=== PATIENT | male | born 1985 | race Hispanic/Latino ===

== ENCOUNTER 2017-09-09 19:00 | Emergency (ER) | payer SELFPAY | END 2017-09-09 19:35 | disposition home or self-care (01) | LOC: EDH 19:00 | DX: K64.9 Unspecified hemorrhoids (principal); Z88.0 Allergy status to penicillin | CPT/HCPCS: 99281 ==

== ENCOUNTER → 2020-02-18 | Outpatient (CLI) | payer OTHER | END | disposition home or self-care (01) | LOC: OIH 14:12 | PROVIDERS: ATTEND Internal Medicine | DX: M47.816 Spondylosis without myelopathy or radiculopathy, lumbar region (principal); M48.061 Spinal stenosis, lumbar region without neurogenic claudication; M25.78 Osteophyte, vertebrae | CPT/HCPCS: 72100 ==

== ENCOUNTER 2020-08-24 15:29 | Inpatient (IN) | payer MEDICAID, OTHER ==
[~2020-08-24] VITALS: Ht 185.4 cm; Wt 211.4 kg
[2020-08-24 16:04] LABS: ABG HCO3 40.1 mmol/L (21.0-28.0); ABG OXYGEN SATURATION 83.2 % (95.0-99.0); ABG PCO2 61 mmHg (35-48)
[2020-08-24 16:08] LABS: BASOPHILS % (AUTO) 0.2 % (0.0-5.0); EOSINOPHILS % (AUTO) 0.2 % (0.0-8.0); HEMATOCRIT 41.4 % (42-54); LYMPHOCYTES % (AUTO) 13.5 % (21.0-51.0); MEAN CORPUSCULAR HEMOGLOBIN 22.9 pg (27.0-33.0); MEAN CORPUSCULAR HGB CONC 29.7 g/dL (32.0-36.0); MEAN CORPUSCULAR VOLUME 77.1 fL (79-99); MONOCYTES % (AUTO) 8.4 % (3.0-13.0); NEUTROPHILS % (AUTO) 77.3 % (40.0-77.0); PLATELET COUNT (AUTO) 406 K/uL (130-400); RED BLOOD CELL COUNT(AUTO) 5.37 MIL/uL (4.50-6.20); RED CELL DISTRIBUTION WIDTH 20.8 % (11.0-15.5); WHITE BLOOD COUNT (AUTO) 13.1 K/uL (4.8-10.8)
[2020-08-24 16:26] LABS: INR 1.05 (0.85-1.15); PROTHROMBIN TIME 11.4 SEC (9.6-11.6)
[2020-08-24 16:28] LABS: ALBUMIN 3.1 g/dL (3.5-5.0); BILIRUBIN,TOTAL 0.6 mg/dL (0.2-1.0)
[2020-08-24] MEDS ORDERED: LEVOFLOXACIN 500 MG/D5W 100 ML 100 ML ONE (16:45)
[2020-08-24 17:08] LABS: CRP QUANTITATIVE 2.8 mg/L (0.00-9.0)
[2020-08-24] MEDS ORDERED: VANCOMYCIN PROTOCOL PER PHARMACY IV SCH (18:00)
[2020-08-24] MEDS ORDERED: LABETALOL 20MG SYG IV PRN (18:00)
[2020-08-24] MEDS ORDERED: COMPOUND IV REFRIGERATED 1 EACH IVSOLN MISC PRN (18:15)
[2020-08-24] MEDS ORDERED: VANCOMYCIN 1G 2.5 GM in 0.9% NACL 500ML IV.SOLN 500 ML IV ONE (18:15)
[2020-08-24 18:21] LABS: % IRON SATURATION 12.8 % (30-44)
[2020-08-24 18:30] LABS: THYROID STIMULATING HORMONE 1.68 uIU/mL (0.36-3.74)
[2020-08-24 18:41] LABS: HEMOGLOBIN A1C 6.6 % (4.0-6.0)
[2020-08-24] MEDS ORDERED: METF-444 PO (19:38)
[2020-08-24] MEDS ORDERED: FOLIC ACID 1 MG TABLET PO SCH (19:55)
[2020-08-24 19:59] VITALS: BP 156/90
[2020-08-24] MEDS ORDERED: DEXAMETHASONE SOD PHOSPHATE 4 MG/ML 1ML VIAL IVP SCH (20:00)
[2020-08-24] MEDS: INSULIN HUMULIN R 100 UNIT/ML 3ML SQ SCH (20:31)
[2020-08-24] MEDS ORDERED: HYDROXYZINE 25 MG TABLET PO SCH (22:45)
[2020-08-24] MEDS ORDERED: HYDROXYZINE 25 MG TABLET ONE (22:51)
[2020-08-25 00:24] VITALS: BP 145/86
[2020-08-25] MEDS: VANCOMYCIN 1G/250ML KIT 250 ML IV SCH ×2 (02:03→09:42)
[2020-08-25 03:57] VITALS: BP 140/90
[2020-08-25 05:42] LABS: BASOPHILS % (AUTO) 0.3 % (0.0-5.0); EOSINOPHILS % (AUTO) 0.6 % (0.0-8.0); HEMATOCRIT 40.7 % (42-54); LYMPHOCYTES % (AUTO) 14.6 % (21.0-51.0); MEAN CORPUSCULAR HEMOGLOBIN 22.6 pg (27.0-33.0); MEAN CORPUSCULAR VOLUME 75.5 fL (79-99); MONOCYTES % (AUTO) 6.1 % (3.0-13.0); PLATELET COUNT (AUTO) 317 K/uL (130-400); RED BLOOD CELL COUNT(AUTO) 5.39 MIL/uL (4.50-6.20); RED CELL DISTRIBUTION WIDTH 20.3 % (11.0-15.5); WHITE BLOOD COUNT (AUTO) 10.1 K/uL (4.8-10.8)
[2020-08-25] MEDS: INSULIN HUMULIN R 100 UNIT/ML 3ML SQ SCH ×3 (05:57→16:24)
[2020-08-25 06:04] LABS: ALBUMIN 2.9 g/dL (3.5-5.0); BILIRUBIN,TOTAL 0.6 mg/dL (0.2-1.0); CREATININE 0.9 mg/dL (0.5-1.5); CRP QUANTITATIVE 17.2 mg/L (0.00-9.0); POTASSIUM 3.6 mmol/L (3.5-5.1); TOTAL PROTEIN, SERUM 6.9 g/dL (6.0-8.3)
[2020-08-25 08:00] VITALS: BP 126/72
[2020-08-25] MEDS ORDERED: THIAMINE HCL 100 MG TABLET PO SCH (09:00)
[2020-08-25] MEDS ORDERED: LEVOFLOXACIN 750 MG/D5W 150 ML 150 ML IV SCH (09:00)
[2020-08-25] MEDS ORDERED: ENOXAPARIN SODIUM 40 MG/0.4 ML SYRINGE SQ SCH (09:00)
[2020-08-25 09:10] LABS: AMPHET/METH SCREEN,URINE NEGATIVE (NEGATIVE); BARBITURATE SCREEN, URINE NEGATIVE (NEGATIVE); BENZODIAZEPINES SCREEN,URINE NEGATIVE (NEGATIVE); CANNABINOID SCREEN,URINE NEGATIVE (NEGATIVE); COCAINE SCREEN,URINE NEGATIVE (NEGATIVE); OPIATE SCREEN,URINE NEGATIVE (NEGATIVE); PHENCYCLIDINE SCREEN,URINE NEGATIVE (NEGATIVE)
[2020-08-25] MEDS ORDERED: NICOTINE 14 MG/ 24 HR PATCH TD SCH (11:30)
[2020-08-25 11:41] VITALS: BP 133/66
[2020-08-25 16:43] VITALS: BP 129/71
[2020-08-25] MEDS ORDERED: COMPOUND IV REFRIGERATED 1 EACH IVSOLN MISC PRN (17:30)
[2020-08-25] MEDS ORDERED: VANCOMYCIN 1G 2 GM in 0.9% NACL 500ML IV.SOLN 500 ML IV SCH (18:00)
[2020-08-26] MEDS ORDERED: NICOTINE 14 MG/ 24 HR PATCH TD SCH (09:00)
== END 2020-08-25 19:45 | disposition left against medical advice (07) | DRG 139 ==
LOC: EDH 15:29 → EDHIP 15:30 → 2AH 19:27
PROVIDERS: ADMIT Internal Medicine; ATTEND Internal Medicine
DX: J18.9 Pneumonia, unspecified organism (principal); J96.01 Acute respiratory failure with hypoxia; J96.12 Chronic respiratory failure with hypercapnia; E66.01 Morbid (severe) obesity due to excess calories; E11.9 Type 2 diabetes mellitus without complications; I10 Essential (primary) hypertension; F17.210 Nicotine dependence, cigarettes, uncomplicated; Z20.822 Contact with and (suspected) exposure to COVID-19; G47.33 Obstructive sleep apnea (adult) (pediatric); Z68.44 Body mass index [BMI] 60.0-69.9, adult; Z88.0 Allergy status to penicillin; Z91.19 Patient's noncompliance with other medical treatment and regimen; Z83.3 Family history of diabetes mellitus
CPT/HCPCS: 36415; 36600; 71045; 71250; 80053; 80061; 80202; 80305; 82728; 82803; 82948; 83036; 83540; 83550; 83605; 83615; 83880; 84145; 84443; 84484; 85025; 85378; 85610; 85651; 85730; 86140; 86738; 86850; 86900; 86901; 87040; 87426; 87449; 93005; 93970; 94660; G0378; J1650; J1956; J3370; J7040; U0003

== ENCOUNTER 2021-12-21 20:53 | Emergency (ER) | payer MEDICAID ==
[~2021-12-21] VITALS: Ht 185.4 cm; Wt 208.7 kg
[~2021-12-21 20:53] MED LIST: METF-444 PO
[2021-12-21 20:55] VITALS: BP 154/90
[2021-12-21 21:17] LABS: BASOPHILS % (AUTO) 0.2 % (0.0-5.0); HEMATOCRIT 50.9 % (42-54); LYMPHOCYTES % (AUTO) 19.8 % (21.0-51.0); MEAN CORPUSCULAR HGB CONC 30.6 g/dL (32.0-36.0); MEAN CORPUSCULAR VOLUME 84.8 fL (79-99); MONOCYTES % (AUTO) 8.6 % (3.0-13.0); PLATELET COUNT (AUTO) 268 K/uL (130-400); RED CELL DISTRIBUTION WIDTH 18.9 % (11.0-15.5); WHITE BLOOD COUNT (AUTO) 9.2 K/uL (4.8-10.8)
[2021-12-21 21:30] LABS: CREATININE 0.9 mg/dL (0.5-1.5); POTASSIUM 4.2 mmol/L (3.5-5.1)
[2021-12-21 21:38] LABS: ALBUMIN 3.3 g/dL (3.5-5.0); BILIRUBIN,TOTAL 0.2 mg/dL (0.2-1.0); TOTAL PROTEIN, SERUM 7.8 g/dL (6.0-8.3)
[2021-12-21 21:50] LABS: ABG BASE EXCESS 2.1 mmol/L (-2.0-3.0); ABG HCO3 27.7 mmol/L (21.0-28.0); ABG OXYGEN SATURATION 96.3 % (95.0-99.0); ABG PCO2 46 mmHg (35-48)
[2021-12-21] MEDS ORDERED: DEXA6TAB PO (22:43)
[2021-12-21] MEDS ORDERED: DEXAMETHASONE SOD PHOSPHATE 4 MG/ML 1ML VIAL IVP ONE (23:00)
== END 2021-12-21 22:47 | disposition home or self-care (01) ==
LOC: EDH 20:53
DX: U07.1 COVID-19 (principal); F41.9 Anxiety disorder, unspecified; F32.A Depression, unspecified; E11.9 Type 2 diabetes mellitus without complications; E78.00 Pure hypercholesterolemia, unspecified; I10 Essential (primary) hypertension; Z88.0 Allergy status to penicillin; Z88.1 Allergy status to other antibiotic agents; Z79.84 Long term (current) use of oral hypoglycemic drugs
CPT/HCPCS: 36415; 36600; 71045; 80053; 82803; 83615; 84484; 85025; 85378; 93005; 96374; 99285; J1100

== ENCOUNTER → 2022-05-24 | Outpatient (CLI) | payer OTHER ==
[~2022-05-24] MED LIST changes: +DEXA6TAB PO
== END | disposition home or self-care (01) ==
LOC: DTH 12:11
PROVIDERS: ATTEND Surgery
DX: Z71.3 Dietary counseling and surveillance (principal); E66.01 Morbid (severe) obesity due to excess calories; E11.9 Type 2 diabetes mellitus without complications; E78.00 Pure hypercholesterolemia, unspecified; G47.33 Obstructive sleep apnea (adult) (pediatric); K21.9 Gastro-esophageal reflux disease without esophagitis; Z68.44 Body mass index [BMI] 60.0-69.9, adult
CPT/HCPCS: 97802

== ENCOUNTER → 2022-06-21 | Outpatient (CLI) | payer OTHER | END | disposition home or self-care (01) | LOC: DTH 10:28 | PROVIDERS: ATTEND Surgery | DX: Z71.3 Dietary counseling and surveillance (principal); E66.01 Morbid (severe) obesity due to excess calories; E78.00 Pure hypercholesterolemia, unspecified; E11.9 Type 2 diabetes mellitus without complications; K21.9 Gastro-esophageal reflux disease without esophagitis; G47.33 Obstructive sleep apnea (adult) (pediatric); Z68.44 Body mass index [BMI] 60.0-69.9, adult | CPT/HCPCS: 97803 ==

== ENCOUNTER → 2022-08-10 | Outpatient (CLI) | payer OTHER | END | disposition home or self-care (01) | LOC: DTH 09:03 | PROVIDERS: ATTEND Surgery | DX: Z71.3 Dietary counseling and surveillance (principal); E66.01 Morbid (severe) obesity due to excess calories; E11.9 Type 2 diabetes mellitus without complications; E78.00 Pure hypercholesterolemia, unspecified; K21.9 Gastro-esophageal reflux disease without esophagitis; G47.33 Obstructive sleep apnea (adult) (pediatric); Z68.44 Body mass index [BMI] 60.0-69.9, adult | CPT/HCPCS: 97803 ==

== ENCOUNTER → 2022-09-05 | Outpatient (CLI) | payer MEDICAID, OTHER | END | disposition home or self-care (01) | LOC: DTH 11:19 | PROVIDERS: ATTEND Surgery | DX: Z71.3 Dietary counseling and surveillance (principal); E66.01 Morbid (severe) obesity due to excess calories; E11.9 Type 2 diabetes mellitus without complications; K21.9 Gastro-esophageal reflux disease without esophagitis; G47.33 Obstructive sleep apnea (adult) (pediatric); Z68.44 Body mass index [BMI] 60.0-69.9, adult | CPT/HCPCS: 97803 ==

== ENCOUNTER → 2022-10-13 | Outpatient (CLI) | payer OTHER | END | disposition home or self-care (01) | LOC: DTH 10:26 | PROVIDERS: ATTEND Surgery | DX: Z71.3 Dietary counseling and surveillance (principal); E66.01 Morbid (severe) obesity due to excess calories; E11.9 Type 2 diabetes mellitus without complications; E78.00 Pure hypercholesterolemia, unspecified; K21.9 Gastro-esophageal reflux disease without esophagitis; G47.33 Obstructive sleep apnea (adult) (pediatric); Z68.44 Body mass index [BMI] 60.0-69.9, adult | CPT/HCPCS: 97803 ==

== ENCOUNTER 2022-11-28 09:37 | Inpatient (IN) | payer MEDICAID ==
[2022-11-24 11:54] VITALS: BP 147/77
[2022-11-24 12:02] LABS: CREATININE 0.9 mg/dL (0.5-1.5); POTASSIUM 3.8 mmol/L (3.5-5.1)
[2022-11-24 12:16] LABS: BASOPHILS % (AUTO) 0.4 % (0.0-5.0); EOSINOPHILS % (AUTO) 2.3 % (0.0-8.0); HEMATOCRIT 52.1 % (42-54); LYMPHOCYTES % (AUTO) 23.6 % (21.0-51.0); MEAN CORPUSCULAR HEMOGLOBIN 24.8 pg (27.0-33.0); MEAN CORPUSCULAR HGB CONC 30.7 g/dL (32.0-36.0); MEAN CORPUSCULAR VOLUME 80.8 fL (79-99); MONOCYTES % (AUTO) 7.6 % (3.0-13.0); NEUTROPHILS % (AUTO) 65.8 % (40.0-77.0); PLATELET COUNT (AUTO) 284 K/uL (130-400); RED BLOOD CELL COUNT(AUTO) 6.45 MIL/uL (4.50-6.20); RED CELL DISTRIBUTION WIDTH 20.3 % (11.0-15.5); WHITE BLOOD COUNT (AUTO) 7.7 K/uL (4.8-10.8)
[2022-11-28] VITALS (25 sets, daily range): BP systolic 93–175; BP diastolic 40–111
[~2022-11-28] VITALS: Ht 185.4 cm; Wt 205.6 kg
[~2022-11-28 09:37] MED LIST changes: +AMIT50TA3 PO; +ATOR-2 PO; -DEXA6TAB PO; -METF-444 PO; +SEMA2PEN SQ; +TOPI100T37 PO; +VALB40CA2 PO; +VITAD50000 PO; +VORT10TA PO
[2022-11-28] MEDS ORDERED: CLINDAMYCIN IVPB 900MG/50ML 50 ML IV ONE (09:56)
[2022-11-28] MEDS ORDERED: 0.9%NACL 1000ML 1,000 ML IV ONE (09:56)
[2022-11-28] MEDS ORDERED: IPRATROPIUM/ALBUTEROL SULFATE 3 ML SOLUTION IH STA (10:28)
[2022-11-28] MEDS ORDERED: LIDOCAINE HCL MPF 1% 5ML VIAL ONE (10:44)
[2022-11-28] MEDS ORDERED: ROCURONIUM 10MG/1ML SYR 10 MG/ML ML ONE ×2 (10:44→12:08)
[2022-11-28] MEDS ORDERED: FENTANYL CITRATE PF 50 MCG/1 ML 2ML VIAL ONE (10:44)
[2022-11-28] MEDS ORDERED: SUCCINYLCHOLINE 200MG/10ML SYR ONE (10:44)
[2022-11-28] MEDS ORDERED: PROPOFOL 10 MG/ML 20ML VIAL IV ONE ×2 (10:44→10:45)
[2022-11-28] MEDS ORDERED: SUGAMMADEX SODIUM 200 MG/2 ML VIAL IV ONE (11:02)
[2022-11-28] MEDS ORDERED: FAMOTIDINE 20MG VIAL IV ONE ×2 (11:03→11:04)
[2022-11-28] MEDS ORDERED: LIDOCAINE 1%-EPI 1:100,000 20 ML VIAL IJ ONE ×2 (11:08→11:37)
[2022-11-28] MEDS ORDERED: BUPIVACAINE/PF 0.25% 30ML VIAL IJ ONE ×2 (11:08→11:38)
[2022-11-28] MEDS ORDERED: EPHEDRINE SULFATE 50 MG/ML AMPULE ONE (11:37)
[2022-11-28] MEDS ORDERED: PHENYLEPHRINE HCL 10 MG/ML 1ML VIAL IV ONE (12:09)
[2022-11-28] MEDS ORDERED: DEXAMETHASONE SOD PHOSPHATE 10MG/ML 1ML VIAL ONE (12:11)
[2022-11-28] MEDS ORDERED: ONDANSETRON 4MG INJ ONE (12:12)
[2022-11-28] MEDS ORDERED: FENTANYL CITRATE PF 50 MCG/1 ML 5ML AMP IV ONE (15:49)
[2022-11-28] MEDS ORDERED: ONDANSETRON 4MG INJ IVP PRN (16:00)
[2022-11-28] MEDS ORDERED: MORPHINE 5 MG/ML VIAL (5MG OR GREATER DOSE) IVP PRN (16:00)
[2022-11-28] MEDS: CLINDAMYCIN IVPB 900MG/50ML 50 ML IV SCH (16:00)
[2022-11-28] MEDS ORDERED: LACTATED RINGERS 1000ML 1,000 ML IV SCH (16:00)
[2022-11-28] MEDS ORDERED: MEPERIDINE-PF 25 MG/ML SYG ONE (16:22)
[2022-11-28] MEDS: INSULIN HUMULIN R 100 UNIT/ML 3ML SQ SCH ×2 (16:30→21:00)
[2022-11-28] MEDS: KETOROLAC 30MG VIAL (30MG/ML) IVP PRN (18:03)
[2022-11-28] MEDS: ENOXAPARIN SODIUM 30 MG/0.3 ML SQ SCH (21:45)
[2022-11-28] MEDS: FAMOTIDINE 20MG VIAL IV SCH (21:45)
[2022-11-29] MEDS: CLINDAMYCIN IVPB 900MG/50ML 50 ML IV SCH
[2022-11-29 03:59] VITALS: BP 110/99
[2022-11-29] MEDS: KETOROLAC 30MG VIAL (30MG/ML) IVP PRN ×2 (04:44→12:39)
[2022-11-29 04:47] LABS: BASOPHILS % (AUTO) 0.1 % (0.0-5.0); HEMATOCRIT 43.1 % (42-54); LYMPHOCYTES % (AUTO) 7.9 % (21.0-51.0); MEAN CORPUSCULAR HEMOGLOBIN 25.2 pg (27.0-33.0); MEAN CORPUSCULAR HGB CONC 30.6 g/dL (32.0-36.0); MEAN CORPUSCULAR VOLUME 82.4 fL (79-99); NEUTROPHILS % (AUTO) 82.7 % (40.0-77.0); PLATELET COUNT (AUTO) 278 K/uL (130-400); RED BLOOD CELL COUNT(AUTO) 5.23 MIL/uL (4.50-6.20); WHITE BLOOD COUNT (AUTO) 12.2 K/uL (4.8-10.8)
[2022-11-29 04:56] LABS: CREATININE 1.1 mg/dL (0.5-1.5); POTASSIUM 4.2 mmol/L (3.5-5.1)
[2022-11-29] MEDS: INSULIN HUMULIN R 100 UNIT/ML 3ML SQ SCH ×2 (05:56→11:30)
[2022-11-29 08:00] VITALS: BP 118/53
[2022-11-29] MEDS: FAMOTIDINE 20MG VIAL IV SCH (09:43)
[2022-11-29] MEDS: ENOXAPARIN SODIUM 30 MG/0.3 ML SQ SCH (09:44)
[2022-11-29 12:00] VITALS: BP 156/69
[2022-11-29] MEDS ORDERED: TOPIRAMATE 100 MG TAB PO SCH (21:00)
[2022-11-29] MEDS ORDERED: AMITRIPTYLINE HCL 50 MG PO SCH (21:00)
== END 2022-11-29 17:45 | disposition home or self-care (01) | DRG 403 ==
LOC: DAHIP 09:37 → 4AH 17:10
PROVIDERS: ADMIT Surgery; ATTEND Surgery
PROC: 0D164ZA Bypass Stomach to Jejunum, Percutaneous Endoscopic Approach (ICD-10-PCS; 2022-11-28)
PROC: 8E0W4CZ Robotic Assisted Procedure of Trunk Region, Percutaneous Endoscopic Approach (ICD-10-PCS; principal; 2022-11-28 11:16)
DX: E66.01 Morbid (severe) obesity due to excess calories (principal); E11.9 Type 2 diabetes mellitus without complications; G47.33 Obstructive sleep apnea (adult) (pediatric); Z20.822 Contact with and (suspected) exposure to COVID-19; Z68.43 Body mass index [BMI] 50.0-59.9, adult; K29.70 Gastritis, unspecified, without bleeding
CPT/HCPCS: 36415; 71045; 80048; 82948; 85025; 87426; 93970; 94640; G0378; J0330; J1100; J1650; J1885; J2175; J2370; J2405; J2704; J3010; J3490; J7030

== ENCOUNTER 2023-05-22 13:46 | Emergency (ER) | payer MEDICAID ==
[~2023-05-22] VITALS: Ht 185.4 cm; Wt 167.8 kg
[2023-05-22 16:32] LABS: BASOPHILS # (AUTO) 0.02 K/uL (0.00-0.20); BASOPHILS % (AUTO) 0.3 % (0.0-5.0); EOSINOPHILS # (AUTO) 0.16 K/uL (0.00-0.70); EOSINOPHILS % (AUTO) 2.2 % (0.0-8.0); HEMATOCRIT 44.8 % (42-54); IMMATURE GRANULOCYTE ABSOLUTE 0.02 K/uL (0-1); MEAN CORPUSCULAR HEMOGLOBIN 26.4 pg (27.0-33.0); MEAN CORPUSCULAR HGB CONC 31.3 g/dL (32.0-36.0); MEAN CORPUSCULAR VOLUME 84.5 fL (79-99); MONOCYTES # (AUTO) 0.5 K/uL (0.1-1.0); MONOCYTES % (AUTO) 7.4 % (3.0-13.0); NEUTROPHILS # (AUTO) 4.5 K/uL (1.8-7.7); NEUTROPHILS % (AUTO) 61.8 % (40.0-77.0); PLATELET COUNT (AUTO) 286 K/uL (130-400); RED CELL DISTRIBUTION WIDTH 17.7 % (11.0-15.5); WHITE BLOOD COUNT (AUTO) 7.2 K/uL (4.8-10.8)
[2023-05-22 16:40] LABS: POTASSIUM 3.6 mmol/L (3.5-5.1)
[2023-05-22 16:44] LABS: ALBUMIN 3.5 g/dL (3.5-5.0); BILIRUBIN,TOTAL 0.4 mg/dL (0.2-1.0); TOTAL PROTEIN, SERUM 7.9 g/dL (6.0-8.3)
[2023-05-22] MEDS ORDERED: LACTATED RINGERS 1000ML 1,000 ML IV ONE (18:00)
[2023-05-22] MEDS ORDERED: ONDANSETRON 4MG INJ IVP ONE (18:00)
[2023-05-22] MEDS ORDERED: MORPHINE 4 MG SYG IVP ONE (18:00)
[2023-05-22 19:10] VITALS: BP 141/78; PULSE 73; RESP 16; O2SAT 95
[2023-05-22 19:20] LABS: APPEARANCE,URINE CLEAR (CLEAR); BILIRUBIN,URINE NEGATIVE (NEGATIVE); COLOR,URINE YELLOW (YELLOW); GLUCOSE, URINE (UA) NEGATIVE (NEGATIVE); KETONES,URINE NEGATIVE (NEGATIVE); LEUKOCYTE ESTERASE ,URINE NEGATIVE Leu/uL (NEGATIVE); NITRATE,URINE NEGATIVE (NEGATIVE); OCCULT BLOOD,URINE NEGATIVE (NEGATIVE); PROTEIN,URINE 20 mg/dL (NEGATIVE); UROBILINOGEN,URINE 3 mg/dL (0.2-1.0)
[2023-05-22 19:21] LABS: ADD UA MICROSCOPIC YES
[2023-05-22 19:24] LABS: BACTERIA,URINE RARE /HPF (None Seen); MUCUS,URINE MOD LPF (None Seen); RBC,URINE 0-1 /HPF (0-1); SQUAMOUS EPITHELIAL CELL,UR RARE /HPF (0-2)
[2023-05-22] MEDS ORDERED: IOHEXOL-350 75 ML VIAL IV ONE (19:37)
[2023-05-22] MEDS ORDERED: ACET-2247 PO (21:47)
== END 2023-05-22 22:18 | disposition home or self-care (01) ==
LOC: EDH 13:46
DX: R10.9 Unspecified abdominal pain (principal); E11.9 Type 2 diabetes mellitus without complications; E78.00 Pure hypercholesterolemia, unspecified; F31.9 Bipolar disorder, unspecified; I10 Essential (primary) hypertension; J44.9 Chronic obstructive pulmonary disease, unspecified; Z88.0 Allergy status to penicillin; Z88.1 Allergy status to other antibiotic agents
CPT/HCPCS: 99285; 74177; 96374; 71045; 96375; 84484; 80053; 83690; 85025; 81001; 36415; 93005; J7120; J2405; J2270; Q9967

== ENCOUNTER 2024-09-02 06:50 | Observation (INO) | payer MEDICAID ==
[2024-08-29 08:56] VITALS: BP 135/75; PULSE 61; RESP 20; TEMP 97.3
[2024-08-29 09:13] LABS: BASOPHILS # (AUTO) 0.02 K/uL (0.00-0.20); BASOPHILS % (AUTO) 0.3 % (0.0-5.0); EOSINOPHILS # (AUTO) 0.11 K/uL (0.00-0.70); EOSINOPHILS % (AUTO) 1.8 % (0.0-8.0); HEMATOCRIT 45.1 % (42-54); IMMATURE GRANULOCYTE ABSOLUTE 0.02 K/uL (0-1); LYMPHOCYTES # (AUTO) 2.1 K/uL (1.0-4.8); LYMPHOCYTES % (AUTO) 34.2 % (21.0-51.0); MEAN CORPUSCULAR HEMOGLOBIN 29.1 pg (27.0-33.0); MEAN CORPUSCULAR HGB CONC 32.2 g/dL (32.0-36.0); MEAN CORPUSCULAR VOLUME 90.6 fL (79-99); MONOCYTES # (AUTO) 0.5 K/uL (0.1-1.0); MONOCYTES % (AUTO) 8.2 % (3.0-13.0); NEUTROPHILS # (AUTO) 3.4 K/uL (1.8-7.7); NEUTROPHILS % (AUTO) 55.2 % (40.0-77.0); PLATELET COUNT (AUTO) 243 K/uL (130-400); RED BLOOD CELL COUNT(AUTO) 4.98 MIL/uL (4.50-6.20); RED CELL DISTRIBUTION WIDTH 13.9 % (11.0-15.5); WHITE BLOOD COUNT (AUTO) 6.1 K/uL (4.8-10.8)
[2024-08-29 09:26] LABS: INR 0.96 (0.85-1.15); PROTHROMBIN TIME 10.2 SEC (9.6-11.6)
[2024-08-29 09:28] LABS: PARTIAL THROMBOPLASTIN TIME 28.8 SEC (26.3-35.5)
[2024-09-02] VITALS (28 sets, daily range): BP systolic 90–114; BP diastolic 36–78; PULSE 51–66; RESP 15–20; TEMP 97.3–97.9
[~2024-09-02] VITALS: Ht 185.4 cm; Wt 131.4 kg
[~2024-09-02 06:50] MED LIST changes: -ATOR-2 PO; +ERGO500093 PO; +LAMO25TA72 PO; +TOPI-97 PO; -TOPI100T37 PO; +TRINTELLIX PO; -VITAD50000 PO; -VORT10TA PO
[2024-09-02] MEDS: acetaMINOPHEN 100 ML ONE (07:08)
[2024-09-02] MEDS: FAMOTIDINE 20MG VIAL IV ONE (07:08)
[2024-09-02] MEDS ORDERED: LIDOCAINE PF 100MG/5ML (2%) SYRINGE 5ML ONE (07:37)
[2024-09-02] MEDS ORDERED: rocuRONium bROMide 10MG/1ML 5ML VL ONE ×2 (07:37→08:59)
[2024-09-02] MEDS ORDERED: FENTanyl CITRate PF 50 MCG/1 ML 2ML VIAL ONE (07:37)
[2024-09-02] MEDS ORDERED: proPOFol 10 MG/ML 20ML VIAL IV ONE (07:37)
[2024-09-02] MEDS: 0.9%NACL 1000ML 1,000 ML IV ONE (07:39)
[2024-09-02] MEDS: CLINDAMYCIN IVPB 900MG/50ML 50 ML IV ONE (07:39)
[2024-09-02] MEDS ORDERED: ALBUMIN (HUMAN) 5% 250 ML IV ONE (07:40)
[2024-09-02] MEDS ORDERED: ketaMINE 50MG/ML SYRINGE 50 MG/ML DISP.SYRIN ONE (07:40)
[2024-09-02] MEDS: CLINDAMYCIN 900MG/6ML INJ IVPB ONE (08:45)
[2024-09-02] MEDS ORDERED: dexaMETHasone SOD PHOSPHATE 10MG/ML 1ML VIAL ONE (08:45)
[2024-09-02] MEDS ORDERED: ondanSETRON 4MG INJ ONE (08:45)
[2024-09-02] MEDS ORDERED: phenylEPHRINE HCL 10 MG/ML 1ML VIAL IV ONE (09:09)
--- NOTE | 2024-09-02 10:58 | OP ---
Operative Note: DATE OF PROCEDURE: 09/02/24 SURGEON: LEWIS STEPHENS MD ICING MACHINE OPERATOR: [] ANESTHESIA: [] General ANESTHESIOLOGIST/CHECK CLERK: [] PREOPERATIVE DIAGNOSIS: [] Panniculitis POSTOPERATIVE DIAGNOSIS: [] The same SYNOPSIS: [] PROCEDURE: [] Panniculectomy ESTIMATED BLOOD LOSS: [] 300 cc INDICATIONS: [] DESCRIPTION OF PROCEDURE: [] With the patient prepped and draped previously marked I did an incision from right to left side of anterior iliac spine. I started creating flaps using cautery and voyent device. Patient had a very thick abdominal wall. I was able to create all this flap to the ribs in the umbilicus was removed as discussed with the patient previously. After elevating the flaps I placed the patient in a reflex position and I removed the excess of skin and subcutaneous tissue. Bleeding points were cauterized and perforated sometimes were suture. After removing the skin and subcutaneous tissue I then started approximated the flaps in three layers with a 2-0 Monocryl. The 1st one in the deep subcutaneous tissue the 2nd one in the superficial dermal in the last one and 4-0 Monocryl. I placed two CARMEN 10. That were brought to the side of the wound and were anchored with nylon. After this was done I placed a Steri-Strips and an abdominal binder. Patient was stable during the whole procedure. He will be admitted for observation LEWIS STEPHENS MD Sep 02, 2024 10:58
[2024-09-02] MEDS ORDERED: NEOSTIGMINE METHYLSULFATE 1MG/ML IV ONE (11:03)
[2024-09-02] MEDS ORDERED: GLYCOPYRROLATE 0.2 MG/ML 5 ML VIAL ONE ×2 (11:03→11:38)
[2024-09-02] MEDS ORDERED: ketOROlac 30MG VIAL (30MG/ML) ONE (11:13)
[2024-09-02] MEDS ORDERED: ondanSETRON 4MG INJ IVP PRN (14:30)
[2024-09-02] MEDS: CLINDAMYCIN IVPB 900MG/50ML 50 ML IV SCH (17:37)
[2024-09-02] MEDS: topIRAMate 25 MG TABLET PO SCH (20:00)
[2024-09-02] MEDS: morPHINE 4 MG SYG IVP PRN (22:08)
[2024-09-03 04:23] VITALS: BP 106/51; PULSE 58; RESP 18; TEMP 98.6
[2024-09-03] MEDS: ketOROlac 30MG VIAL (30MG/ML) IVP PRN (04:32)
[2024-09-03 06:08] LABS: BASOPHILS # (AUTO) 0.02 K/uL (0.00-0.20); BASOPHILS % (AUTO) 0.2 % (0.0-5.0); EOSINOPHILS # (AUTO) 0.01 K/uL (0.00-0.70); EOSINOPHILS % (AUTO) 0.1 % (0.0-8.0); HEMATOCRIT 30.5 % (42-54); IMMATURE GRANULOCYTE ABSOLUTE 0.02 K/uL (0-1); LYMPHOCYTES # (AUTO) 1.3 K/uL (1.0-4.8); LYMPHOCYTES % (AUTO) 14.7 % (21.0-51.0); MEAN CORPUSCULAR HEMOGLOBIN 29.3 pg (27.0-33.0); MEAN CORPUSCULAR HGB CONC 32.1 g/dL (32.0-36.0); MEAN CORPUSCULAR VOLUME 91.3 fL (79-99); MONOCYTES # (AUTO) 0.5 K/uL (0.1-1.0); MONOCYTES % (AUTO) 5.9 % (3.0-13.0); NEUTROPHILS # (AUTO) 7.2 K/uL (1.8-7.7); NEUTROPHILS % (AUTO) 78.9 % (40.0-77.0); PLATELET COUNT (AUTO) 219 K/uL (130-400); RED BLOOD CELL COUNT(AUTO) 3.34 MIL/uL (4.50-6.20); RED CELL DISTRIBUTION WIDTH 13.7 % (11.0-15.5); WHITE BLOOD COUNT (AUTO) 9.1 K/uL (4.8-10.8)
[2024-09-03 06:32] LABS: ALBUMIN 2.4 g/dL (3.5-5.0); BILIRUBIN,TOTAL 0.4 mg/dL (0.2-1.0); POTASSIUM 3.8 mmol/L (3.5-5.1); TOTAL PROTEIN, SERUM 4.9 g/dL (6.0-8.3)
[2024-09-03 08:00] VITALS: BP 104/36; PULSE 66; RESP 18; TEMP 98
[2024-09-03] MEDS: LACTATED RINGERS 1000ML 1,000 ML IV ONE (08:12)
[2024-09-03 08:20] VITALS: O2SAT 100
--- NOTE | 2024-09-03 09:38 | CONS ---
[facility] CONSULTATION NOTE Date of Service: Sep 03, 2024 Reason for Consultation: [ ] Requesting Physician: [ ] HISTORY OF PRESENT ILLNESS: [ ] 38-year-old male past medical history of diabetes mellitus type 2, vitamin-D deficiency, insomnia was admitted on 09/02/2024 for elective panniculectomy secondary to panniculitis by Dr. Dey. Patient tolerated procedure well. Early this morning patient's blood pressure was reported 80 systolic. He was given 1 L of LR bolus and repeat blood pressure was 104 systolic. Patient reports he has a history of running in the 100-110's on systolic. Dr. English was notified and recommended hospitalist consult due to hypotension. Today at bedside on my evaluation, patient was found alert and oriented x3. CARMEN drains x2 in place. Reports did not have any symptoms when his blood pressure was reported at 80 systolic. Denies any chest pain, shortness of breath, weakness or any other symptoms. His latest vital signs stable afebrile, satting 100% on room air. There is a drop in H&H from yesterday 14.5/45.19.8/30.5 today. CMP is stable. BUN is 17. Patient is ambulatory as tolerated. Repeat H&H at noon. Thank you for this consult. REVIEW OF SYSTEMS CONSTITUTIONAL: Denies fevers, chills, or night sweats. No unintentional weight loss reported. NEUROLOGICAL: Denies headache, amaurosis fugax, motor weakness, sensory deficit, vertigo/spinning sensation, gait abnormalities, or tremors. ENT: No hearing loss, otalgia, otorrhea, rhinitis, rhinorrhea, hoarseness, or sore throat. CARDIOVASCULAR: Denies any exertional angina, dyspnea on exertion, orthopnea, paroxysmal nocturnal dyspnea, palpitations, life-threatening arrhythmias, claudication. PULMONARY: Denies any shortness of breath, cough, phlegm/sputum, hemoptysis, pleuritic chest pain. SLEEP: Denies morning headaches, daytime somnolence or napping. Denies difficulty falling asleep, staying asleep, waking from sleep. Denies knowledge of snoring. GASTROINTESTINAL: Denies any type of dysphagia to either liquids or solids. Denies nausea, vomiting, pyrosis, early satiety, abdominal pain, diarrhea, constipation, or changes in stool consistency or caliber. Denies coffee-ground emesis, hematemesis, hematochezia, or melanotic stools. GENITOURINARY: Denies frequency, urgency, nocturia, hematuria or incontinence (Storage/Irritative symptoms.) Low urinary stream, straining to void, urinary intermittency or hesitancy, splitting of the voiding stream, terminal dribbling. ENDOCRINOLOGIC: Denies polyuria, polydipsia, polyphagia or heat/cold intolerances. HEMATOLOGIC: Denies thrombophilia/previous clots, or coagulopathy/bleeding disorders. ONCOLOGIC: Denies personal history of malignancy. DERMATOLOGIC: Denies rashes or pruritus. PSYCHIATRIC: Denies any suicidal or homicidal ideation. Denies hallucinations. PAST MEDICAL HISTORY: [ ] Diabetes mellitus type 2 PAST SURGICAL HISTORY: [ ] Panniculectomy 09/02/2024 PAST SOCIAL HISTORY: [ ] Denies FAMILY HISTORY: [ ] Noncontributory Coded Allergies: Penicillins (Verified Allergy, Unknown, 08/24/20) cephalexin (Unverified Allergy, Unknown, 12/21/21) PHYSICAL EXAM GENERAL APPEARANCE: The patient is awake, alert, and oriented, in no acute cardiopulmonary distress. NEUROLOGICAL: Cranial nerves II-XII grossly intact. Motor is 5/5 in bilateral upper and lower extremities proximal to distal. No sensory deficits. HEENT: Face is symmetric. Pupils are equal and reactive. Extraocular movements are intact. NECK: Supple. No JVD. No thyromegaly. No submental, submandibular, pre- /postauricular, occipital or supraclavicular lymphadenopathy. CHEST: Normal chest expansion. No Telemetry. LUNGS: Absence of any rales, rhonchi or any wheezing. CARDIOVASCULAR: Regular. S1 and S2 normal. No appreciable rubs, murmurs or gallops. ABDOMEN: Soft, nontender, and nondistended. There is no rebound, voluntary guarding, or rigidity. : Deferred. No Lee. EXTREMITIES: Non-edematous and not cyanotic. No clubbing. Good capillary refill. SKIN: No skin breakdown. Vital Sign (Last 24 Hours) 09/02/24 09/03/24 19:30 08:00 Temp 98.1 Pulse 66 Resp 18 B/P (MAP) 104/36 Pulse Ox 100 O2 Delivery Room Air O2 Flow Rate 0 FiO2 21 Intake & Output (last 24hrs) 3/10/25 3/10/25 3/11/25 15:00 23:00 07:00 Intake Total 70.0 ml 620 ml Output Total 35 ml 120 ml 70 ml Balance 35.0 ml -120 ml 550 ml LABS: Laboratory: Test 09/03/24 05:49 09/03/24 05:08 Range/Units White Blood Count 9.1 4.8-10.8 K/uL Red Blood Count 3.34 L 4.50-6.20 MIL/uL Hemoglobin 9.8 L 14.0-18.0 g/dL Hematocrit 30.5 L 42-54 % Mean Corpuscular Volume 91.3 79-99 fL Mean Corpuscular Hemoglobin 29.3 27.0-33.0 pg Mean Corpuscular Hemoglobin Concent 32.1 32.0-36.0 g/dL Red Cell Distribution Width 13.7 11.0-15.5 % Platelet Count 219 130-400 K/uL Mean Platelet Volume 10.6 H 7.5-10.5 fL Immature Granulocyte % (Auto) 0.2 0-1 % Neutrophils (%) (Auto) 78.9 H 40.0-77.0 % Lymphocytes (%) (Auto) 14.7 L 21.0-51.0 % Monocytes (%) (Auto) 5.9 3.0-13.0 % Eosinophils (%) (Auto) 0.1 0.0-8.0 % Basophils (%) (Auto) 0.2 0.0-5.0 % Neutrophils # (Auto) 7.2 1.8-7.7 K/uL Lymphocytes # (Auto) 1.3 1.0-4.8 K/uL Monocytes # (Auto) 0.5 0.1-1.0 K/uL Eosinophils # (Auto) 0.01 0.00-0.70 K/uL Basophils # (Auto) 0.02 0.00-0.20 K/uL Absolute Immature Granulocyte (auto 0.02 0-1 K/uL Nucleated Red Blood Cells 0.0 0.0-0.19 % Sodium Level 141 136-145 mmol/L Potassium Level 3.8 3.5-5.1 mmol/L Chloride Level 109 101-111 mmol/L Carbon Dioxide Level 23 21-32 mmol/L Blood Urea Nitrogen 17 7-18 mg/dL Creatinine 1.0 0.5-1.3 mg/dL Glomerular Filtration Rate Calc 98 >90 mL/min Random Glucose 116 H 70-105 mg/dL Total Calcium 7.6 L 8.5-10.1 mg/dL Total Bilirubin 0.4 0.2-1.0 mg/dL Aspartate Amino Transf (AST/SGOT) 15 10-37 U/L Alanine Aminotransferase (ALT/SGPT) 16 12-78 U/L Alkaline Phosphatase 55 50-136 U/L Total Protein 4.9 L 6.0-8.3 g/dL Albumin 2.4 L 3.5-5.0 g/dL Whole Blood Glucose 107 70-110 MG/DL Bedside Glucose Comment Notified Nurse DIAGNOSTICS / RADIOLOGY: [ ] ASSESSMENT: [ ] Hypotension, not POA currently resolved Anemia post surgical intervention Diabetes mellitus type 2, POA Obesity BMI 37.8 PLAN: [ ] Post panniculectomy on 09/02/[address] Dey Currently on clear liquid diet and advancing as tolerated In reference to hypotension: Received 1 L of LR bolus Monitoring blood pressures, patient's blood pressures are back to baseline Home medications reviewed Monitoring replace electrolytes Monitor H&H, repeat H&H at noon PRN Treatment - Add when necessary meds for nausea, vomiting, pain, constipation, insomnia. DVT/GI prophylaxis- Continue SCDs, no GI prophylaxis Full CODE STATUS Thank you for this consult, we will follow up This document was generated in part using voice recognition software, occasional wrong word or sound alike substitutions may have occurred due to the inherent limitations of voice recognition software. Read the chart carefully and recognize using context, where the substitutions have occurred. Although every effort was made to edit the content, curtain cleaner and typing errors may occur GRICEL NEWMANP Sep 03, 2024 09:38
--- NOTE | 2024-09-03 11:09 | PN ---
GENERAL SURGERY PROGRESS NOTE Date/Time Patient Seen: [09/03/2024 10:15 AM ] Problem List: [POD #[address] Dey ] Interval History: [Patient states he has been doing good, pain well controlled Passing gas and tolerating diet Patient had episode of hypotension down to 80s this morning Given 1 liter LR, BP remaining over 100s since then Surgical dressings dry and intact without any drainage CARMEN on left with 70 cc sanguineous drainage, large clot noted in chamber CARMEN on right with 50 cc sanguineous drainage ] H&H this morning down to 9.8 from 14.5 Normal BUN and creatinine Scheduled for repeat H&H at noon Continue close monitoring of JPs output Repeat labs in a.m. Encouraged ambulation and continue with I-S every hour Dr. Dey updated on patient's status Current Medications Medications (Trade) Dose Ordered Sig/Dasha Route Start Time Stop Time Status Last Admin Dose Admin Clindamycin HCl/ Dextrose 50 ml @ 100 mls/hr Q6H6 IV 09/02/24 18:00 09/04/24 17:59 09/03/24 05:17 100 MLS/HR Topiramate (TopaMAX) 50 mg BID PO 09/02/24 21:00 10/02/24 20:59 09/03/24 08:12 50 MG Physical Examination: GENERAL: [No acute distress, comfortably lying in bed.] HEAD: [Normocephalic.] EYES: [PERRLA.] ENT: [Hearing grossly intact.] NECK: [Supple without JVD.] LUNGS: [Clear breath sounds bilaterally.] HEART: [Normal rate and rhythm.] VASC: [Peripheral pulses +2 bilaterally.] ABD: [Abdomen soft, no rigidity or signs of peritonitis, dressing to lower abdomen dry and intact, CARMEN x 2 with sanguineous output.] : [Not examined] EXT: [No edema.] SKIN: [No lesions noted.] NEURO: [Awake, alert, and oriented x3. No focal sensory or strength deficits noted.] Vital Signs (last 8hr) Date Time Temp Pulse Resp B/P (MAP) Pulse Ox O2 Delivery O2 Flow Rate FiO2 09/03/24 08:00 98.1 66 18 104/36 100 Room Air 09/03/24 04:23 98.6 58 18 106/51 96 Room Air Laboratory: [ ] Hematology Labs: Test 09/03/24 05:49 Range/Units White Blood Count 9.1 4.8-10.8 K/uL Red Blood Count 3.34 L 4.50-6.20 MIL/uL Hemoglobin 9.8 L 14.0-18.0 g/dL Hematocrit 30.5 L 42-54 % Mean Corpuscular Volume 91.3 79-99 fL Mean Corpuscular Hemoglobin 29.3 27.0-33.0 pg Mean Corpuscular Hemoglobin Concent 32.1 32.0-36.0 g/dL Red Cell Distribution Width 13.7 11.0-15.5 % Platelet Count 219 130-400 K/uL Mean Platelet Volume 10.6 H 7.5-10.5 fL Immature Granulocyte % (Auto) 0.2 0-1 % Neutrophils (%) (Auto) 78.9 H 40.0-77.0 % Lymphocytes (%) (Auto) 14.7 L 21.0-51.0 % Monocytes (%) (Auto) 5.9 3.0-13.0 % Eosinophils (%) (Auto) 0.1 0.0-8.0 % Basophils (%) (Auto) 0.2 0.0-5.0 % Neutrophils # (Auto) 7.2 1.8-7.7 K/uL Lymphocytes # (Auto) 1.3 1.0-4.8 K/uL Monocytes # (Auto) 0.5 0.1-1.0 K/uL Eosinophils # (Auto) 0.01 0.00-0.70 K/uL Basophils # (Auto) 0.02 0.00-0.20 K/uL Absolute Immature Granulocyte (auto 0.02 0-1 K/uL Nucleated Red Blood Cells 0.0 0.0-0.19 % Chemistry Labs: Test 09/03/24 05:49 09/03/24 05:08 Range/Units Sodium Level 141 136-145 mmol/L Potassium Level 3.8 3.5-5.1 mmol/L Chloride Level 109 101-111 mmol/L Carbon Dioxide Level 23 21-32 mmol/L Blood Urea Nitrogen 17 7-18 mg/dL Creatinine 1.0 0.5-1.3 mg/dL Glomerular Filtration Rate Calc 98 >90 mL/min Random Glucose 116 H 70-105 mg/dL Total Calcium 7.6 L 8.5-10.1 mg/dL Total Bilirubin 0.4 0.2-1.0 mg/dL Aspartate Amino Transf (AST/SGOT) 15 10-37 U/L Alanine Aminotransferase (ALT/SGPT) 16 12-78 U/L Alkaline Phosphatase 55 50-136 U/L Total Protein 4.9 L 6.0-8.3 g/dL Albumin 2.4 L 3.5-5.0 g/dL Whole Blood Glucose 107 70-110 MG/DL Bedside Glucose Comment Notified Nurse Diagnostics / Radiology: [Copy/Paste Echos/Imaging Report here] Impression and Plan: [Monitor H&H closely, scheduled for repeat level at noon Close monitoring of output from JPs Encourage ambulation as tolerated Continue with I-S exercises hourly Repeat labs in a.m. Dr. Dey updated on patient's status] ATTESTATION BY PHYSICIAN I have seen and examined the patient. I reviewed the documentation, medical decision making, and treatment plan as noted by the mid-level provider above. I agree with the findings and plan of care. MD MIKE SIMMONS LETICIA A APRN Sep 03, 2024 11:09
[2024-09-03 11:59] LABS: HEMATOCRIT 28.7 % (42-54)
[2024-09-03 12:00] VITALS: BP 101/32; PULSE 61; RESP 18; TEMP 98
[2024-09-03 12:15] LABS: % IRON SATURATION 26.2 % (30-44)
--- NOTE | 2024-09-03 13:33 | NUR ---
DCP Patient states lives with mother and Tabatha Lopes, Spouse/Provider [phone]; in a house with one step entrance and a walk in shower with a bench. States he is disabled, remains independent and drives. States able to complete ADL's on his own. States has a shower chair and bedside commode. States Tabatha Lopes, Spouse/Provider [phone] is his provider from [facility] for eight hours per week. Denies home health service and dialysis. PCP - [facility] - Gaby MARKS. Upon discharge, Tabatha Lopes, Spouse/Provider [phone] and assist with care, as needed. Addendum: 09/03/24 at 1340 by DEISY LAURENT RN CM Amended: Links added.
[2024-09-03 16:00] VITALS: BP 89/48; PULSE 66; RESP 18; TEMP 98.3
[2024-09-03 20:00] VITALS: BP 95/42; PULSE 61; RESP 20; TEMP 98.2; O2SAT 94
[2024-09-03] MEDS: acetaMINOPHEN 325 MG TAB PO PRN (23:05)
[2024-09-04] VITALS: BP 94/42; PULSE 62; RESP 20; TEMP 98.7
[2024-09-04 04:00] VITALS: BP 90/51; PULSE 63; RESP 20; TEMP 97.9
[2024-09-04 08:00] VITALS: BP_SYST 101; BP_SYST 92; BP_DIAS 42; BP_DIAS 58; PULSE 63; PULSE 64; RESP 18; TEMP 98.1; TEMP 98.7
[2024-09-04 08:15] VITALS: O2SAT 95
--- NOTE | 2024-09-04 08:20 | PN ---
[facility] PROGRESS NOTE Date of Service: Sep 04, 2024 Time of Service: 08:20 SUBJECTIVE: [ ] 38-year-old male past medical history of diabetes mellitus type 2, vitamin-D deficiency, insomnia was admitted on 09/02/2024 for elective panniculectomy secondary to panniculitis by Dr. Dey. Patient tolerated procedure well. Early this morning patient's blood pressure was reported 80 systolic. He was given 1 L of LR bolus and repeat blood pressure was 104 systolic. Patient reports he has a history of running in the 100-110's on systolic. Dr. English was notified and recommended hospitalist consult due to hypotension. Today at bedside on my evaluation, patient was found alert and oriented x3. CARMEN drains x2 in place. Reports did not have any symptoms when his blood pressure was reported at 80 systolic. Denies any chest pain, shortness of breath, weakness or any other symptoms. His latest vital signs stable afebrile, satting 100% on room air. There is a drop in H&H from yesterday 14.5/45.19.8/30.5 today. CMP is stable. BUN is 17. Patient is ambulatory as tolerated. Repeat H&H at noon. 09/04/2024 today at bedside evaluation patient was found alert and oriented x3. No complaints, no incidences overnight. Blood pressures running in 90s systolic. Adding one dose of midodrine 5 mg p.o.. Later in the day patient's primary nurse reports patient's vital signs remained stable with latest blood pressure at 118/46. CBC is also stable H&H improved now at 10.2/31, BMP is unremarkable. From medical standpoint patient is stable. Cleared for discharge from our standpoint. Thank you for this consult REVIEW OF SYSTEMS CONSTITUTIONAL: Denies fevers, chills, or night sweats. No unintentional weight loss reported. NEUROLOGICAL: Denies headache, amaurosis fugax, motor weakness, sensory deficit, vertigo/spinning sensation, gait abnormalities, or tremors. ENT: No hearing loss, otalgia, otorrhea, rhinitis, rhinorrhea, hoarseness, or s ore throat. CARDIOVASCULAR: Denies any exertional angina, dyspnea on exertion, orthopnea, paroxysmal nocturnal dyspnea, palpitations, life-threatening arrhythmias, claudication. PULMONARY: Denies any shortness of breath, cough, phlegm/sputum, hemoptysis, pleuritic chest pain. SLEEP: Denies morning headaches, daytime somnolence or napping. Denies difficulty falling asleep, staying asleep, waking from sleep. Denies knowledge of snoring. GASTROINTESTINAL: Denies any type of dysphagia to either liquids or solids. Denies nausea, vomiting, pyrosis, early satiety, abdominal pain, diarrhea, constipation, or changes in stool consistency or caliber. Denies coffee-ground emesis, hematemesis, hematochezia, or melanotic stools. GENITOURINARY: Denies frequency, urgency, nocturia, hematuria or incontinence (Storage/Irritative symptoms.) Low urinary stream, straining to void, urinary intermittency or hesitancy, splitting of the voiding stream, terminal dribbling. ENDOCRINOLOGIC: Denies polyuria, polydipsia, polyphagia or heat/cold intolerances. HEMATOLOGIC: Denies thrombophilia/previous clots, or coagulopathy/bleeding disorders. ONCOLOGIC: Denies personal history of malignancy. DERMATOLOGIC: Denies rashes or pruritus. PSYCHIATRIC: Denies any suicidal or homicidal ideation. Denies hallucinations. PHYSICAL EXAM GENERAL APPEARANCE: The patient is awake, alert, and oriented, in no acute cardiopulmonary distress. NEUROLOGICAL: Cranial nerves II-XII grossly intact. Motor is 5/5 in bilateral upper and lower extremities proximal to distal. No sensory deficits. HEENT: Face is symmetric. Pupils are equal and reactive. Extraocular movements are intact. NECK: Supple. No JVD. No thyromegaly. No submental, submandibular, pre- /postauricular, occipital or supraclavicular lymphadenopathy. CHEST: Normal chest expansion. No Telemetry. LUNGS: Absence of any rales, rhonchi or any wheezing. CARDIOVASCULAR: Regular. S1 and S2 normal. No appreciable rubs, murmurs or gallops. ABDOMEN: Soft, nontender, and nondistended. There is no rebound, voluntary guarding, or rigidity. : Deferred. No Lee. EXTREMITIES: Non-edematous and not cyanotic. No clubbing. Good capillary refill. SKIN: No skin breakdown. Vital Signs (last 8hr) Date Time Temp Pulse Resp B/P (MAP) Pulse Ox O2 Delivery O2 Flow Rate FiO2 09/04/24 08:00 98.1 64 18 92/58 95 Room Air 09/04/24 04:00 97.9 63 20 90/51 96 Room Air LABS: Laboratory: Test 09/04/24 05:20 09/03/24 11:51 09/03/24 05:49 09/03/24 05:08 Range/Units Whole Blood Glucose 83 70-110 MG/DL Hemoglobin 9.5 L 14.0-18.0 g/dL Hematocrit 28.7 L 42-54 % Iron Level 84 65-175 mcg/dL Total Iron Binding Capacity 320 250-450 mcg/dL Percent Iron Saturation 26.2 L 30-44 % White Blood Count 9.1 4.8-10.8 K/uL Red Blood Count 3.34 L 4.50-6.20 MIL/uL Mean Corpuscular Volume 91.3 79-99 fL Mean Corpuscular Hemoglobin 29.3 27.0-33.0 pg Mean Corpuscular Hemoglobin Concent 32.1 32.0-36.0 g/dL Red Cell Distribution Width 13.7 11.0-15.5 % Platelet Count 219 130-400 K/uL Mean Platelet Volume 10.6 H 7.5-10.5 fL Immature Granulocyte % (Auto) 0.2 0-1 % Neutrophils (%) (Auto) 78.9 H 40.0-77.0 % Lymphocytes (%) (Auto) 14.7 L 21.0-51.0 % Monocytes (%) (Auto) 5.9 3.0-13.0 % Eosinophils (%) (Auto) 0.1 0.0-8.0 % Basophils (%) (Auto) 0.2 0.0-5.0 % Neutrophils # (Auto) 7.2 1.8-7.7 K/uL Lymphocytes # (Auto) 1.3 1.0-4.8 K/uL Monocytes # (Auto) 0.5 0.1-1.0 K/uL Eosinophils # (Auto) 0.01 0.00-0.70 K/uL Basophils # (Auto) 0.02 0.00-0.20 K/uL Absolute Immature Granulocyte (auto 0.02 0-1 K/uL Nucleated Red Blood Cells 0.0 0.0-0.19 % Sodium Level 141 136-145 mmol/L Potassium Level 3.8 3.5-5.1 mmol/L Chloride Level 109 101-111 mmol/L Carbon Dioxide Level 23 21-32 mmol/L Blood Urea Nitrogen 17 7-18 mg/dL Creatinine 1.0 0.5-1.3 mg/dL Glomerular Filtration Rate Calc 98 >90 mL/min Random Glucose 116 H 70-105 mg/dL Total Calcium 7.6 L 8.5-10.1 mg/dL Total Bilirubin 0.4 0.2-1.0 mg/dL Aspartate Amino Transf (AST/SGOT) 15 10-37 U/L Alanine Aminotransferase (ALT/SGPT) 16 12-78 U/L Alkaline Phosphatase 55 50-136 U/L Total Protein 4.9 L 6.0-8.3 g/dL Albumin 2.4 L 3.5-5.0 g/dL Bedside Glucose Comment Notified Nurse Current Medications Medications (Trade) Dose Ordered Sig/Dasha Route PRN Reason Start Time Stop Time Status Last Admin Dose Admin Acetaminophen (TYLenol 325MG TAB) 650 mg Q6H PRN PO MILD PAIN (1-3) 09/03/24 23:00 10/03/24 22:59 09/04/24 06:08 650 MG Clindamycin HCl/ Dextrose 50 ml @ 100 mls/hr Q6H6 IV 09/02/24 18:00 09/04/24 17:59 09/04/24 06:06 100 MLS/HR Ketorolac Tromethamine (toRADol) 30 mg Q6H PRN IVP SEVERE PAIN (7-10) 09/02/24 14:30 09/07/24 14:29 09/03/24 21:34 30 MG Morphine Sulfate (morPHINE 4MG SYG) 4 mg Q4H PRN IVP SEVERE PAIN (7-10) 09/02/24 14:30 09/03/24 09:34 DC 09/02/24 22:08 4 MG Ondansetron HCl (zoFRAN 4MG INJ) 4 mg Q6H PRN IVP NAUSEA/VOMITING 09/02/24 14:30 10/02/24 14:29 Topiramate (TopaMAX) 50 mg BID PO 09/02/24 21:00 10/02/24 20:59 09/03/24 21:30 50 MG DIAGNOSTICS / RADIOLOGY: [ ] ASSESSMENT: [ ] Hypotension, not POA stable Anemia post surgical intervention, stabilizing Diabetes mellitus type 2, POA Obesity BMI 37.8 PLAN: [ ] Post panniculectomy on 09/02/[address] Dey Advanced to GI soft and tolerating In reference to hypotension: Received 1 L of LR bolus Monitoring blood pressures, patient's blood pressures are back to baseline Received one dose of midodrine 5 mg p.o. this a.m. Script sent to patient's pharmacy Home medications reviewed Monitoring replace electrolytes Monitor H&H, repeat H&H at noon PRN Treatment - Add when necessary meds for nausea, vomiting, pain, constipation, insomnia. DVT/GI prophylaxis- Continue SCDs, no GI prophylaxis Full CODE STATUS Patient was medically stable from our standpoint Thank you for allowing us to participate in the care of your patient This document was generated in part using voice recognition software, occasional wrong word or sound alike substitutions may have occurred due to the inherent limitations of voice recognition software. Read the chart carefully and recognize using context, where the substitutions have occurred. Although every effort was made to edit the content, dismantler and typing errors may occur GRICEL NEWMAN Sep 04, 2024 08:20
[2024-09-04 09:02] LABS: BASOPHILS # (AUTO) 0.02 K/uL (0.00-0.20); BASOPHILS % (AUTO) 0.2 % (0.0-5.0); EOSINOPHILS # (AUTO) 0.11 K/uL (0.00-0.70); EOSINOPHILS % (AUTO) 1.3 % (0.0-8.0); IMMATURE GRANULOCYTE ABSOLUTE 0.02 K/uL (0-1); LYMPHOCYTES # (AUTO) 1.2 K/uL (1.0-4.8); LYMPHOCYTES % (AUTO) 14.2 % (21.0-51.0); MEAN CORPUSCULAR HEMOGLOBIN 30.2 pg (27.0-33.0); MEAN CORPUSCULAR HGB CONC 32.9 g/dL (32.0-36.0); MEAN CORPUSCULAR VOLUME 91.7 fL (79-99); MONOCYTES # (AUTO) 0.5 K/uL (0.1-1.0); MONOCYTES % (AUTO) 6.2 % (3.0-13.0); NEUTROPHILS # (AUTO) 6.6 K/uL (1.8-7.7); NEUTROPHILS % (AUTO) 77.9 % (40.0-77.0); PLATELET COUNT (AUTO) 186 K/uL (130-400); RED BLOOD CELL COUNT(AUTO) 3.38 MIL/uL (4.50-6.20); RED CELL DISTRIBUTION WIDTH 14.2 % (11.0-15.5); WHITE BLOOD COUNT (AUTO) 8.4 K/uL (4.8-10.8)
[2024-09-04 09:09] LABS: POTASSIUM 3.8 mmol/L (3.5-5.1)
[2024-09-04] MEDS: miDODRine HCL 5 MG TABLET PO ONE (10:21)
[2024-09-04 12:00] VITALS: BP 118/46; PULSE 74; RESP 18; TEMP 98.2
[2024-09-04] MEDS ORDERED: MIDO5TAB4 PO (13:16)
--- NOTE | 2024-09-04 16:14 | DS ---
Discharge Summary HOSPITAL COURSE SUMMARY: [ ] This is a 38-year-old male status post panniculectomy by Dr. Dey postop day two Interval history: This is a 38-year-old male status post panniculectomy. Postoperatively patient experience hypotension prompting consultation to the hospitalist After adjustments to medications patient's blood pressure has been stable Patient's hemoglobin stable CARMEN drains with good serosanguineous output Patient at this point in time ready for discharge Physical exam General: Awake alert and oriented Heart: Regular rate and rhythm} Lungs: [Clear to auscultation no distress Abdomen: incisions clean and dry with CARMEN drains in place Assessment : This is a 38-year-old male status post panniculectomy by Dr. Dey ready for discharge Plan: From surgical standpoint patient will be cleared for discharge Orders for case management to set up home health for wound care and drain care with saline cleaning with 4 x 4 bandaging Patient to follow up in two weeks with Dr. Dey's office Patient will be discharged with p.o. antibiotics and pain meds Patient's stressed the importance of compliance with the antibiotic management Dr. Dey to be updated in patient's status HELMINTHOLOGIST(S): [Hospitalist] PROCEDURES: [Panniculectomy] PROBLEM(S): [Postoperative hypotension] DISCHARGE INSTRUCTIONS: [] Follow up in two weeks with Dr. Dey is office Home Meds Reported Medications Lamotrigine (Lamotrigine) 25 Mg Tab.er.24, 25 MG PO BID 08/29/24 Ergocalciferol (Vitamin D2) (Vitamin D2) 1,250 Mcg (03765 Unit) Capsule, 1250 MCG PO QWEEK, CAP QMONDAYS 08/29/24 [Trintellix] No Conflict Check, 20 MG PO DAILY 08/29/24 Topiramate (Topiramate) 50 Mg Tablet, 50 MG PO BID, TAB 08/29/24 Amitriptyline HCl (Amitriptyline HCl) 50 Mg Tablet, 50 MG PO HS, TAB 11/24/22 Valbenazine Tosylate (Ingrezza) 40 Mg Capsule, 40 MG PO HS, CAP 11/24/22 Semaglutide (Ozempic) 2 Mg/0.75 Ml Pen.injctr, 2 MG SQ QWEEK 11/24/22 Discontinued Reported Medications Atorvastatin Calcium (Atorvastatin Calcium) 80 Mg Tablet, 80 MG PO HS, TAB 11/24/22 Topiramate (Topiramate) 100 Mg Tablet, 100 MG PO BID, TAB 11/24/22 Vortioxetine Hydrobromide (Brintellix) 10 Mg Tablet, 10 MG PO BID, TAB 11/24/22 Cholecalciferol (Vitamin D3) 50,000 Units Cap, 82553 UNITS PO QWEEK, CAP 11/24/22 Discontinued Scripts Acetaminophen (Tylenol) 325 Mg Tablet, 325 MG PO TIDP PRN for PAIN, #40 TAB Prov:SPENCER NAVARRETE MD 05/22/23 Time spent arranging discharge: 1-30 minutes TORY QUEEN Jr. Sep 04, 2024 16:14
--- NOTE | 2024-09-04 19:30 | NUR ---
DISCHARGE PATIENT HAS BEEN DISCHARGED HOME. PIV REMOVED, PRESSURE GAUZE AND TAPE APPLIED TO SITE. PATIENT AND AT BEDSIDE TAUGHT HOW TO DRAIN BOTH CARMEN DRAIN TO PT'S ADB AND HOW TO INCISIONAL AREA. BOTH PATIENT AND VERBALIZE UNDERSTANDING OF WOUND CARE, THEY ALSO VERBALIZE UNDERSTANDING OF DISCHARGE PAPERWORK. PATIENT SENT WITH WRITTEN PRESCRIPTION. PATIENT WHEELED DOWN TO PRIVATE AUTOMOBILE ACCOMPANIED BY NURSE AND [employer]ER SEAL.
== END 2024-09-04 19:15 | disposition home or self-care (01) ==
LOC: DAH 06:50 → INTOOBSV 06:51 → DAHIP 06:51 → DAH 06:51 → 4BH 13:55
PROVIDERS: ADMIT Surgery; ATTEND Surgery
DX: M79.3 Panniculitis, unspecified (principal); L30.4 Erythema intertrigo; I95.81 Postprocedural hypotension; E66.9 Obesity, unspecified; D64.9 Anemia, unspecified; E11.9 Type 2 diabetes mellitus without complications; G47.00 Insomnia, unspecified; Z68.37 Body mass index [BMI] 37.0-37.9, adult; Z86.2 Personal history of diseases of the blood and blood-forming organs and certain disorders involving the immune mechanism; Z79.899 Other long term (current) drug therapy
CPT/HCPCS: 80048 ×2; 85025 ×3; 85610; 85730; 36415 ×3; 15830; 15847; 96365; 96366 ×5; 96375 ×2; 82948 ×11; 96376 ×2; 83540; 83550; 80053; 85014; 85018; A4663; J7030 ×2; P9045; J3490 ×15; J3010; J1100; J2003; J2704; J2405; J2270; J1885 ×5; J2710; J2371; A4649; A4223 ×2; A4222; A4221; A4216; A4600; A4450; G0378 ×25; J7120

== ENCOUNTER → 2025-03-10 | Outpatient (CLI) | payer MEDICAID ==
[~2025-03-10] MED LIST changes: +AMIT50TA14 PO; -AMIT50TA3 PO; +MIDO5TAB4 PO
--- NOTE | 2025-03-11 06:52 | HMCIMG ---
Examination Hepatobiliary study History NONALCOHOLIC STEATOHEPATITIS (Hx) / NONALCOHOLIC STEATOHEPATITIS, Dyn Images (DICOM Hx) (DICOM Hx) Technique Tc-99m mebrofenin were administered intravenously followed by acquisition of planar images of the abdomen. Findings Following administration of radiotracer, there is prompt appearance of normal hepatic contours, followed by appearance of activity in unremarkable appearing bile ducts. There is prompt filling of the gallbladder. The study is negative for acute cholecystitis. Decreased gallbladder ejection fraction of 23% reflects gallbladder dyskinesia. IMPRESSION: 1. No acute cholecystitis. 2. Gallbladder dyskinesia with decreased ejection fraction of 23%. /[place]
== END | disposition home or self-care (01) ==
LOC: RAH 07:06
PROVIDERS: ATTEND Internal Medicine Gastroenterology
DX: K75.81 Nonalcoholic steatohepatitis (NASH) (principal); K82.8 Other specified diseases of gallbladder
CPT/HCPCS: 78227; A9537